=== PATIENT | male | born 1950 | race Caucasian/White ===

== ENCOUNTER 2018-10-22 14:01 | Inpatient (IN) | payer OTHER ==
--- NOTE | 2018-10-22 16:14 | PDOC ---
History of Present Illness - General Chief Complaint: Pain, Acute Stated Complaint: ABD PAIN, VOMITING (PCP SENT) Time Seen by Provider: 10/22/18 16:13 History Source: Patient Exam Limitations: No Limitations - History of Present Illness Initial Comments: Pt is a 67 yo M, with PMH of TIA (remote, no deficits), [place] (2016, with stents), HTN, HLD, hernia (?), and GERD with bleeding duodenal ulcer (treated w antibiotics), who is presenting with complaints of RUQ and epigastric pain x1 month, associated with nausea/vomiting and decreased ability to tolerate PO food intake. Pt is presenting today from his PCP office, as his PCP had concerns of decreased PO intake and possible biliary disease. Pt states the abdominal pain occurs throughout the day, is sharp and is constant. It is exacerbated by food. Pt states he took OTC maalox and 14 days of prilosec, which improved the pain, but then ran out of the medication. Pt admits to alcohol use, including either 6-pack beer or 1 bottle of wine per day. Pt states his BMs have been loose since he has only been able to tolerate apple sauce, water, and pedialyte. He has not been taking any of his medications ( aspirin, statin, metoprolol, lisinopril) x3 weeks due to stomach discomfort and feared interaction of his medications with alcohol. Pt denies any fevers/chills , headache, vision changes, chest pain, palpitations, SOB, urinary symptoms, diarrhea/constipation, or leg swelling. Social: Alcohol use - 1 bottle of wine or 6 pack "tall boys" beer. No cigarette or drug use. Pt denies any recent travel or sick contacts. Surgical: no relevant history Family: father and brother with [place] in 40s. 10/22/18 17:35 10/23/18 10:09 Past History - Travel Traveled outside of the country in the last 30 days: No Close contact w/someone who was outside of country & ill: No - Past Medical History Allergies/Adverse Reactions: Allergies Allergy/AdvReac Type Severity Reaction Status Date / Time No Known Allergies Allergy Verified 10/22/18 14:06 Home Medications: Ambulatory Orders Aspirin 81 mg PO DAILY 10/22/18 Atorvastatin Ca [Lipitor] 40 mg PO HS 10/22/18 Lisinopril [Zestril] 2.5 mg PO DAILY 10/22/18 Metoprolol Succinate 25 mg PO DAILY 10/22/18 Cardiac Disorders: Yes (Cardiac Stent 2016) CVA: Yes (TIA remote, no deficits) COPD: No Diabetes: No GI Disorders: Yes (GERD) HTN: Yes Hypercholesterolemia: Yes - Surgical History Abdominal Surgery: No (hernia repair) Appendectomy: No Cardiac Surgery: Yes (cardiac stents) Cholecystectomy: No GI Surgery: No - Suicide/Smoking/Psychosocial Hx Smoking History: Never smoked Have you smoked in the past 12 months: No Information on smoking cessation initiated: No Hx Alcohol Use: No Drug/Substance Use Hx: No Substance Use Type: None Review of Systems - Review of Systems Able to Perform ROS?: Yes Is the patient limited Persian proficient: No Constitutional: Yes: Loss of Appetite, Weight Stable. No: Chills, Diaphoresis, Fever HEENTM: Yes: Throat Pain (from emesis). No: Recent change in vision, Nose Congestion, Difficulty Swallowing Respiratory: No: Cough, Orthopnea, Shortness of Breath Cardiac (ROS): No: Chest Pain, Edema, Irregular Heart Rate, Lightheadedness, Palpitations, Syncope, Chest Tightness ABD/GI: Yes: Nausea, Poor Appetite, Vomiting, Indigestion, Abdominal cramping. No: Abdominal Distended, Abd. Pain w/ defecation, Blood Streaked Bowels, Constipated, Diarrhea, Poor Fluid Intake, Rectal Bleeding, Tarry Stools : No: Burning, Dysuria, Frequency, Hematuria, Pain, Urgency Musculoskeletal: No: Back Pain, Joint Pain, Muscle Weakness Integumentary: No: Change in Color, Rash Neurological: No: Headache, Seizure, Weakness, Unsteady Gait, Ataxia, Dizziness Psychiatric: No: Sleep Pattern Change, Change in Appetite Endocrine: Yes: Unexplained Weight Loss, Change in Weight Hematologic/Lymphatic: No: Anemia, Blood Clots, Easy Bleeding, Easy Bruising All Other Systems: Reviewed and Negative *Physical Exam - Vital Signs Last Vital Signs Temp Pulse Resp BP Pulse Ox 97.8 F 81 16 144/65 100 10/22/18 14:04 10/22/18 14:04 10/22/18 14:04 10/22/18 14:04 10/22/18 14:04 - Physical Exam General Appearance: Yes: Nourished, Appropriately Dressed, Other (Pt appears chronically ill; telangiectasias on face, mild abdominal distension but thin in face). No: Apparent Distress, Alcohol on Breath, Intoxicated HEENT: positive: EOMI, ABDI, Normal Voice, Pharyngeal Erythema, Hearing Grossly Normal. negative: Normal ENT Inspection, Pharynx Normal, Scleral Icterus (R), Scleral Icterus (L), Muffled/Hoarse voice, Tonsillar Exudate, Tonsillar Erythema , Nasal Congestion, Lesions, Thrush Neck: positive: Trachea midline, Normal Thyroid, Supple. negative: Tender, Rigid, Decreased range of motion, Lymphadenopathy (R), Lymphadenopathy (L) Respiratory/Chest: positive: Lungs Clear, Normal Breath Sounds. negative: Chest Tender, Respiratory Distress, Accessory Muscle Use, Crackles, Wheezing Cardiovascular: positive: Regular Rhythm, Regular Rate, S1, S2. negative: Edema , JVD, Murmur Vascular Pulses: Carotid (R): 4+, Carotid (L): 4+ Gastrointestinal/Abdominal: positive: Normal Bowel Sounds, Tender (RUQ and epigastric tenderness to palpation, no rebound no guarding), Soft, Distended. negative: Flat, Organomegaly, Pulsatile Mass, Guarding, Rebound, Mass Rectal Exam: positive: deferred Lymphatic: negative: Adenopathy, Tenderness Musculoskeletal: positive: Normal Inspection. negative: CVA Tenderness Extremity: positive: Normal Capillary Refill, Normal Inspection, Normal Range of Motion, Pelvis Stable. negative: Tender, Pedal Edema Integumentary: positive: Dry, Warm, Erythema (erythema of face/telangectasia). negative: Normal Color, Jaundice, Clammy, Diaphoresis, Rash Neurologic: positive: banquet server on call II-XII NML intact, Fully Oriented, Alert, Normal Mood/ Affect, Normal Response, Motor Strength 5/5 Moderate Sedation - Procedure Monitoring Vital Signs: Procedure Monitoring Vital Signs Temperature 97.8 F 10/22/18 14:04 Pulse Rate 81 10/22/18 14:04 Respiratory Rate 16 10/22/18 14:04 Blood Pressure 144/65 10/22/18 14:04 O2 Sat by Pulse Oximetry (%) 100 10/22/18 14:04 ED Treatment Course - LABORATORY CBC & Chemistry Diagram: 10/23/18 06:15 10/23/18 06:15 Medical Decision Making - Medical Decision Making Pt was seen at bedside, also will be seen by attending Dr. Soler. Pt presenting with complaints of RUQ and epigastric pain x1 month, associated with nausea/vomiting and decreased ability to tolerate PO food intake. Pt is presenting today from his PCP office, as his PCP had concerns of decreased PO intake and possible biliary disease. Pt states the abdominal pain occurs throughout the day, is sharp and is constant. It is exacerbated by food. Pt states he took OTC maalox and 14 days of prilosec, which improved the pain, but then ran out of the medication. Pt admits to alcohol use, including either 6- pack beer or 1 bottle of wine per day. Pt states his BMs have been loose since he has only been able to tolerate apple sauce, water, and pedialyte. Pt denies any fevers/chills, headache, vision changes, chest pain, palpitations, SOB, urinary symptoms, diarrhea/constipation, or leg swelling. PE showed erythema of face/telangiectasia, erythema of oral pharynx without exudate. Heart and lung sounds with no wheezing. Abdominal tenderness to palpation in epigastric and RUQ, no hepatosplenomegaly noted, no rebound no guarding. No CVA tenderness. Considering gastritis vs peptic/duodenal ulcer vs pancreatitis vs cholecystitis vs alcoholic hepatitis. Limited concern for gastric/duodenal perforation, as abdomen is soft and non-distended, pt afebrile. Ordered work-up including CBC, CMP, type & screen, PT/INR, UA, urine culture, ECG, troponin and abdominal US (aorta,GB,liver). Provided 1 L NS, 20 mg IV pepcid, 30 mg PO maalox, and viscous lidocaine for improvement of pain and likely reflux. Will continue to reassess pt and monitor for symptomatic improvement. 10/22/18 16:14 CBC: appears very hemoconcentrated (h/h elevated) 10/22/18 17:24 Ordered abd/pelvis CT with contrast in addition to US. Pt also admitted to ~30- 40 lb weight loss since May. 10/22/18 18:15 CMP: K 3.3, Cl 92, likely from vomiting. Mg 2.7, lipase 66. AST and ALT WNL. ECG: HR 63, QTc 476, incomplete RBBB. 10/22/18 18:27 Pt was taken to abd/pelvis CT with IV contrast and US. Pt signed out to next resident team. Explained presentation, ED course, any pending results, and needed interventions to resident Dr. Fontaine. 10/23/18 10:15 *DC/Admit/Observation/Transfer Diagnosis at time of Disposition: Gastric outlet obstruction Abdominal pain Qualifiers: Abdominal location: epigastric Qualified Code(s): R10.13 - Epigastric pain - Discharge Dispostion Condition at time of disposition: Stable - Referrals - Patient Instructions - Post Discharge Activity
--- NOTE | 2018-10-22 16:26 | PDOC ---
Attending Attestation - HPI HPI: 10/22/18 17:40 The patient is a 67 year old male with a significant PMH of TIA, [place] in 2016 s/p stent, hernia, GERD, and bleeding duodenal ulcer who presents to the emergency department with a 1 month history of right upper quadrant and epigastric pain. Patient states he has been drinking gatorade, pedialyte, and water for the past month as he is unable to tolerate PO intake. Patient is also complaining of associated nausea and nonbloody, nonbilious vomit. Patient used maalox, which alleviated his symptoms for approximately 2 weeks but is now constant. Patient endorses daily alcohol use 1 month prior to the onset of these symptoms. Patient went to his PCP today, who advised the patient to come to the ED. Patient admits to a 55lbs. weight loss since May. The patient denies chest pain, shortness of breath, headache and dizziness. Denies fever, chills, diarrhea and constipation. Denies dysuria, frequency, urgency and hematuria. Allergies: NKA Past surgical history: stent placed. Social history: No reported alcohol, drug or cigarette use. PCP: Dr. Jones - Physicial Exam PE: 10/22/18 18:12 ADULT PHYSICAL EXAM Constitutional: Awake, alert, oriented. No acute distress. Head: Normocephalic. Atraumatic Eyes: PERRL. EOMI. Conjunctivae are not pale. ENT: Mucous membranes are moist and intact. Posterior pharynx without exudates or erythema. Uvula midline. Neck: Supple. Full ROM. No lymphadenopathy. Cardiovascular: Regular rate. Regular rhythm. S1, S2 regular. Distal pulses are 2+ and symmetric. Pulmonary/Chest: No evidence of respiratory distress. Clear to auscultation bilaterally No wheezing, rales or rhonchi. Abdominal: Soft and non-distended. There is no tenderness. No rebound, guarding or rigidity. No organomegaly. No palpable masses. Good bowel sounds. Back: No CVA tenderness. Musculoskeletal: No edema. No cyanosis. No clubbing. Full range of motion in all extremities. Nocalf tenderness. Radial/pedal pulses are intact and 2+ bilaterally Skin: Skin is warm and dry. No petechiae. No purpura. Neurological: Alert and oriented to person, place, and time. Cranial nerves II -XII are grossly intact. Normal speech. Strength is grossly symmetric. No sensory deficits. Psychiatric: Good eye contact. Normal interaction, affect and behavior. <Rayna Talavera - Last Filed: 10/22/18 18:12> - Resident Resident Name: Santa Stallworth - ED Attending Attestation I have performed the following: I have examined & evaluated the patient, The case was reviewed & discussed with the resident, I agree w/resident's findings & plan, Exceptions are as noted - Medical Decision Making 10/22/18 16:25 I, Dr. Germaine Soler, DO, attest that this document has been prepared under my direction and personally reviewed by me in its entirety. I further attest, that it accurately reflects all work, treatment, procedures and medical decision -making performed by me. 10/22/18 19:21 a/p: 67yo male with upper abd pain -states 40lb wt loss since may -only able to tolerate liquids at this time -no night sweats -pain and vomiting with any solid food and slow progression of food through his gi tract -pain in epigastric and ruq - concern for biliary disease, gastric ulcer, pud, poss gi ca -will send labs, RUQ ultrasound, ct abd/pelvis -will hydrate -will monitor and reassess 10/22/18 20:36 pt with thickening of the pyloris on ct concern for the wt loss, abd pain, inability to tolerate solids will admit for GI eval and pain control -will continue to hydrate 10/22/18 20:[address] Vickey Jones admits to [facility] who admits to [facility] 10/22/18 20:[address] Hurd who reviewed the CT and requests NGT placement and IVF hydration npo status 10/22/18 20:51 case discussed with Luz from [facility] who accepts pt to service <Germaine Soler - Last Filed: 10/22/18 20:51> Heart Score/ECG Review - ECG Intrepretation Comment:: 10/22/18 19:23 sinus ta 63, nl axis, pac, nl interval, incomplete RBBB, no acute st/t wave findings <Germaine Soler - Last Filed: 10/22/18 20:51>
[2018-10-22] MEDS ORDERED: FAMOTIDINE 20 MG/50 ML IVPB 20 MG/50 ML MG IVPB ONE ×2 (16:37→17:25)
[2018-10-22] MEDS ORDERED: SODIUM CHLORIDE 1,000 ML IV STA (16:37)
[2018-10-22] MEDS ORDERED: MAG HYDROX/AL HYDROX/SIMETH 30 ML UNIT-DOSE CUP PO ONE (16:37)
[2018-10-22] MEDS ORDERED: LIDOCAINE VISCOUS 2% ORAL/TOP 20 ML UNIT-DOSE CUP MM ONE (16:38)
[2018-10-22 17:11] LABS: BASO % 0.5 % (0-2.0); EOS % 0.3 % (0-4.5); HEMATOCRIT 57.3 % (35.4-49); HEMOGLOBIN 19.4 GM/dL (11.7-16.9); MCH 28.3 pg (25.7-33.7); MCHC 33.9 g/dl (32.0-35.9); MEAN CELL VOLUME 83.6 fl (80-96); MONO % 8.5 % (3.8-10.2); NEUT % 77.7 % (42.8-82.8); PLATELET COUNT 158 K/MM3 (134-434); RBC 6.85 M/mm3 (4.00-5.60); RDW 15.1 % (11.9-15.9); WHITE BLOOD COUNT 6.9 K/mm3 (4.0-10.0)
[2018-10-22] MEDS ORDERED: MAG HYDROX/AL HYDROX/SIMETH 30 ML UNIT-DOSE CUP ONE (17:25)
[2018-10-22] MEDS ORDERED: LIDOCAINE VISCOUS 2% ORAL/TOP 20 ML UNIT-DOSE CUP ONE (17:25)
[2018-10-22 17:32] LABS: INR 1.11 (0.83-1.09); PROTHROMBIN TIME (PATIENT) 13.1 SEC (9.7-13.0)
[2018-10-22 17:49] LABS: ALBUMIN 3.7 g/dl (3.4-5.0); ALK PHOS 69 U/L (45-117); ANION GAP 11 MMOL/L (8-16); BILIRUBIN,TOTAL 0.6 mg/dL (0.2-1); BLOOD UREA NITROGEN 7 mg/dL (7-18); CALCIUM 9.4 mg/dL (8.5-10.1); CHLORIDE 92 mmol/L (98-107); CO2 34 mmol/L (21-32); CREATININE 0.8 mg/dL (0.55-1.3); GLUCOSE,RANDOM 135 mg/dL (74-106); LIPASE 66 U/L (73-393); MAGNESIUM 2.7 mg/dL (1.8-2.4); POTASSIUM 3.3 mmol/L (3.5-5.1); SGOT/AST 28 U/L (15-37); SGPT/ALT 27 U/L (13-61); SODIUM 137 mmol/L (136-145); TOT PROT 7.4 g/dl (6.4-8.2)
[2018-10-22] MEDS ORDERED: IPRATROPIUM BR 0.02% 0.5 MG/2.5 ML VIAL.NEB. NEB ONE (18:02)
[2018-10-22] MEDS ORDERED: SODIUM CHLORIDE 0.9% 1000 ML INFUS.BAG IV ONE ×2 (18:06→20:44)
[2018-10-22 19:55] LABS: URINE APPEARANCE CLEAR; URINE BILIRUBIN NEGATIVE (<2.0 mg/dL); URINE COLOR STRAW; URINE GLUCOSE (UA) NEGATIVE (NEGATIVE); URINE KETONE 2+ (NEGATIVE); URINE LEUK ESTERASE NEGATIVE (NEGATIVE); URINE NITRITE NEGATIVE (NEGATIVE); URINE PROTEIN 1+ (NEGATIVE); URINE UROBILINOGEN NEGATIVE mg/dL (0.2-1.0)
--- NOTE | 2018-10-22 20:37 | PDOC ---
*Physical Exam - Vital Signs Last Vital Signs Temp Pulse Resp BP Pulse Ox 97.8 F 81 16 144/65 100 10/22/18 14:04 10/22/18 14:04 10/22/18 14:04 10/22/18 14:04 10/22/18 14:04 ED Treatment Course - LABORATORY CBC & Chemistry Diagram: 10/22/18 16:56 10/22/18 16:56 - ADDITIONAL ORDERS Additional order review: Laboratory Results 10/22/18 10/22/18 10/22/18 19:37 16:56 16:56 PT with INR 13.10 H INR 1.11 H Sodium Potassium Chloride Carbon Dioxide Anion Gap BUN Creatinine Creat Clearance w eGFR Random Glucose Calcium Magnesium Total Bilirubin AST ALT Alkaline Phosphatase Troponin I Total Protein Albumin Lipase Urine Color Straw Urine Appearance Clear Urine pH 9.0 H Ur Specific [place] 1.050 H Urine Protein 1+ H Urine Glucose (UA) Negative Urine Ketones 2+ H Urine Blood Negative Urine Nitrite Negative Urine Bilirubin Negative Urine Urobilinogen Negative Ur Leukocyte Esterase Negative Urine WBC (Auto) None Urine RBC (Auto) 1 Blood Type O POSITIVE Antibody Screen Negative 10/22/18 16:56 PT with INR INR Sodium 137 Potassium 3.3 L Chloride 92 L Carbon Dioxide 34 H Anion Gap 11 BUN 7 Creatinine 0.8 Creat Clearance w eGFR > 60 Random Glucose 135 H Calcium 9.4 Magnesium 2.7 H Total Bilirubin 0.6 AST 28 ALT 27 Alkaline Phosphatase 69 Troponin I < 0.02 Total Protein 7.4 Albumin 3.7 Lipase 66 L Urine Color Urine Appearance Urine pH Ur Specific [place] Urine Protein Urine Glucose (UA) Urine Ketones Urine Blood Urine Nitrite Urine Bilirubin Urine Urobilinogen Ur Leukocyte Esterase Urine WBC (Auto) Urine RBC (Auto) Blood Type Antibody Screen 10/22/18 16:56 RBC 6.85 H MCV 83.6 MCHC 33.9 RDW 15.1 MPV 9.0 D Neutrophils % 77.7 D Lymphocytes % 13.0 D Monocytes % 8.5 Eosinophils % 0.3 D Basophils % 0.5 - Medications Given in the ED: ED Medications Discontinued Medications Generic Name Dose Route Start Last Admin Trade Name Freq PRN Reason Stop Dose Admin Al Hydroxide/Mg Hydroxide 30 ml 10/22/18 16:37 10/22/18 17:45 Mylanta Oral Suspension - PO 10/22/18 16:38 30 ml ONCE ONE Administration Famotidine/Sodium Chloride 20 mg in 50 mls @ 100 mls/hr 10/22/18 16:37 17:45 Pepcid 20 Mg Premixed Ivpb - IVPB 10/22/18 17:06 100 mls/hr ONCE ONE Administration Sodium Chloride 1,000 mls @ 1,000 mls/hr 10/22/18 16:37 10/22/18 17:45 Normal Saline - IV 10/22/18 17:36 1,000 mls/hr ASDIR STA Administration Lidocaine HCl 20 ml 10/22/18 16:38 10/22/18 17:46 Xylocaine 2% Viscous Oral - MM 10/22/18 16:39 20 ml ONCE ONE Administration Sodium Chloride 1,000 ml 10/22/18 18:06 10/22/18 19:33 Normal Saline - IV 10/22/18 18:07 1,000 ml ONCE ONE Administration Medical Decision Making - Medical Decision Making Patient was signed out to me from the day team. CT scan showed gastric outlet obstruction. Contacted hospitalist for admission. He needs an NG tube placed for decompression so he can receive an EGD tomorrow. Will make patient NPO in ED and place NG tube. NG tube placed. Patient admitted to hospitalist for gastric outlet obstruction and abdominal pain. *DC/Admit/Observation/Transfer Diagnosis at time of Disposition: Abdominal pain, Gastric outlet obstruction - Discharge Dispostion Decision to Admit order: Yes - Referrals - Patient Instructions - Post Discharge Activity Procedures - Additional Procedures Additional Procedures: gastric tube replacement (NG tube placed for decompression, no complications. )
[2018-10-22] MEDS ORDERED: SODIUM CHLORIDE 1,000 ML IV SCH (20:45)
--- NOTE | 2018-10-22 22:20 | HP ---
CHIEF COMPLAINT: abd pain, vomiting, PCP: HISTORY OF PRESENT ILLNESS: Kirill Carmona is a 67 yo M, with PMH of TIA (remote, no deficits), [place] (2016, with stents), HTN, HLD, hernia (?), and GERD with bleeding duodenal ulcer (treated w antibiotics), presented to ED today from PCP office with complaints of RUQ and epigastric pain x1 month, associated with nausea/vomiting and decreased ability to tolerate PO food intake. pt reports having on/off RUQ abd pain since Thanks, was vomiting little food he ate, pt had no pain, tried to eat something on Becky and started vomiting again. pt reports last drinking wine in Aug, beer last year, pt stopped taking medications several months ago, didn't want them to interact with alcohol. Pt states his BMs have been loose since he has only been able to tolerate apple sauce, water, and pedialyte. Denies sob, chest pain, NG tube inserted, draining dark brown liquid >700cc in container. pt reports 40 lbs weight loss, was 240's in May, today 196. ER course was notable for: (1)CT scan gastric outlet obstruction (2)afebrile (3)dehydration bun Recent Travel:none PAST MEDICAL HISTORY:hx of [place] (stent placed in 2015), GERD PAST SURGICAL HISTORY: Stent placed Social History: Smoking:denies Alcohol:hx of etoh abuse, last drink in Aug Drugs: denies Family History: Allergies No Known Allergies Allergy (Verified 10/22/18 14:06) HOME MEDICATIONS: Home Medications Medication Instructions Recorded Aspirin 81 mg PO DAILY 10/22/18 Atorvastatin Ca [Lipitor] 40 mg PO HS 10/22/18 Lisinopril [Zestril] 2.5 mg PO DAILY 10/22/18 Metoprolol Succinate 25 mg PO DAILY 10/22/18 REVIEW OF SYSTEMS CONSTITUTIONAL: +weight change, unable to tolerate solids Absent: fever, chills, diaphoresis, generalized weakness, malaise, loss of appetite, HEENT: Absent: rhinorrhea, nasal congestion, throat pain, throat swelling, difficulty swallowing, mouth swelling, ear pain, eye pain, visual changes CARDIOVASCULAR: Absent: chest pain, syncope, palpitations, irregular heart rate, lightheadedness , peripheral edema RESPIRATORY: Absent: cough, shortness of breath, dyspnea with exertion, orthopnea, wheezing, stridor, hemoptysis GASTROINTESTINAL: +abd RUQ abd pain, vomiting, Absent:, diarrhea, constipation, melena, hematochezia GENITOURINARY: Absent: dysuria, frequency, urgency, hesitancy, hematuria, flank pain, genital pain MUSCULOSKELETAL: Absent: myalgia, arthralgia, joint swelling, back pain, neck pain SKIN: Absent: rash, itching, pallor HEMATOLOGIC/IMMUNOLOGIC: Absent: easy bleeding, easy bruising, lymphadenopathy, frequent infections ENDOCRINE: Absent: unexplained weight gain, unexplained weight loss, heat intolerance, cold intolerance NEUROLOGIC: Absent: headache, focal weakness or paresthesias, dizziness, unsteady gait, seizure, mental status changes, bladder or bowel incontinence PSYCHIATRIC: Absent: anxiety, depression, suicidal or homicidal ideation, hallucinations. PHYSICAL EXAMINATION Vital Signs - 24 hr 10/22/18 14:04 Temperature 97.8 F Pulse Rate 81 Respiratory 16 Rate Blood Pressure 144/65 O2 Sat by Pulse 100 Oximetry (%) GENERAL: Awake, alert, and fully oriented, in no acute distress. HEAD: Normal with no signs of trauma. EYES: Pupils equal, round and reactive to light, extraocular movements intact, sclera anicteric, conjunctiva clear. No lid lag. EARS, NOSE, THROAT: Ears normal, nares patent, oropharynx clear without exudates. Moist mucous membranes. NECK: Normal range of motion, supple without lymphadenopathy, JVD, or masses. LUNGS: Breath sounds equal, clear to auscultation bilaterally. No wheezes, and no crackles. No accessory muscle use. HEART: Regular rate and rhythm, normal S1 and S2 without murmur, rub or gallop. ABDOMEN: Soft, nontender on palpation, not distended, normoactive bowel sounds, no guarding, no rebound, no masses. No hepatomegaly or splenomegaly. MUSCULOSKELETAL: Normal range of motion at all joints. No bony deformities or tenderness. No CVA tenderness. UPPER EXTREMITIES: 2+ pulses, warm, well-perfused. No cyanosis. No clubbing. No peripheral edema. LOWER EXTREMITIES: 2+ pulses, warm, well-perfused. No calf tenderness. No peripheral edema. NEUROLOGICAL: Cranial nerves II-XII intact. Normal speech. Normal gait. PSYCHIATRIC: Cooperative. Good eye contact. Appropriate mood and affect. SKIN: Warm, dry, normal turgor, no rashes or lesions noted, normal capillary refill. Laboratory Results - last 24 hr 10/22/18 10/22/18 10/22/18 16:56 16:56 16:56 WBC 6.9 RBC 6.85 H Hgb 19.4 H Hct 57.3 H D MCV 83.6 MCH 28.3 MCHC 33.9 RDW 15.1 Plt Count 158 MPV 9.0 D Absolute Neuts (auto) 5.4 Neutrophils % 77.7 D Lymphocytes % 13.0 D Monocytes % 8.5 Eosinophils % 0.3 D Basophils % 0.5 Nucleated RBC % 0 PT with INR INR Sodium 137 Potassium 3.3 L Chloride 92 L Carbon Dioxide 34 H Anion Gap 11 BUN 7 Creatinine 0.8 Creat Clearance w eGFR > 60 Random Glucose 135 H Calcium 9.4 Magnesium 2.7 H Total Bilirubin 0.6 AST 28 ALT 27 Alkaline Phosphatase 69 Troponin I < 0.02 Total Protein 7.4 Albumin 3.7 Lipase 66 L Urine Color Urine Appearance Urine pH Ur Specific [place] Urine Protein Urine Glucose (UA) Urine Ketones Urine Blood Urine Nitrite Urine Bilirubin Urine Urobilinogen Ur Leukocyte Esterase Urine WBC (Auto) Urine RBC (Auto) Blood Type O POSITIVE Antibody Screen Negative 10/22/18 10/22/18 16:56 19:37 WBC RBC Hgb Hct MCV MCH MCHC RDW Plt Count MPV Absolute Neuts (auto) Neutrophils % Lymphocytes % Monocytes % Eosinophils % Basophils % Nucleated RBC % PT with INR 13.10 H INR 1.11 H Sodium Potassium Chloride Carbon Dioxide Anion Gap BUN Creatinine Creat Clearance w eGFR Random Glucose Calcium Magnesium Total Bilirubin AST ALT Alkaline Phosphatase Troponin I Total Protein Albumin Lipase Urine Color Straw Urine Appearance Clear Urine pH 9.0 H Ur Specific [place] 1.050 H Urine Protein 1+ H Urine Glucose (UA) Negative Urine Ketones 2+ H Urine Blood Negative Urine Nitrite Negative Urine Bilirubin Negative Urine Urobilinogen Negative Ur Leukocyte Esterase Negative Urine WBC (Auto) None Urine RBC (Auto) 1 Blood Type Antibody Screen ASSESSMENT/PLAN: Kirill Carmona is a 67 yo M, with PMH of TIA (remote, no deficits), [place] (2016, with stents), HTN, HLD, hernia (?), and GERD with bleeding duodenal ulcer admitted for Admitting Diagnosis Gastric Outlet Obstruction Chronic Problems HTN HLD GERD A/P: #Gastric outlet obstruction -NPO -NG tube to low suction -IVF -IV PPI, pain mgt -GI consult (made aware in ED) -EGD pending for tomorrow -monitor labs #HTN #HLD -po meds on hold -monitor BP -can give IV if BP increases #Hypokalemia-mild -repeat in AM Full Code Dispo: requires inpatient treatment Visit type - Emergency Visit Emergency Visit: Yes Care time: The patient presented to the Emergency Department on the above date and was hospitalized for further evaluation of their emergent condition. - New Patient This patient is new to me today: Yes Date on this admission: 10/22/18 - Critical Care Critical Care patient: No
[2018-10-23] MEDS: SODIUM CHLORIDE 1,000 ML IV SCH ×2 (04:00→10:54)
[2018-10-23 07:14] LABS: BASO % 0.2 % (0-2.0); EOS % 0.4 % (0-4.5); HEMATOCRIT 56.2 % (35.4-49); HEMOGLOBIN 17.4 GM/dL (11.7-16.9); LYMPH % 16.7 % (8-40); MCH 26.8 pg (25.7-33.7); MEAN CELL VOLUME 86.2 fl (80-96); MEAN PLT VOLUME 8.7 fl (7.5-11.1); MONO % 8.1 % (3.8-10.2); NEUT % 74.6 % (42.8-82.8); PLATELET COUNT 117 K/MM3 (134-434); RBC 6.52 M/mm3 (4.00-5.60); RDW 15.1 % (11.9-15.9); WHITE BLOOD COUNT 6.1 K/mm3 (4.0-10.0)
[2018-10-23 07:34] LABS: ALBUMIN 2.9 g/dl (3.4-5.0); ALK PHOS 52 U/L (45-117); ANION GAP 9 MMOL/L (8-16); BILIRUBIN,TOTAL 0.5 mg/dL (0.2-1); BLOOD UREA NITROGEN 8 mg/dL (7-18); CALCIUM 8.1 mg/dL (8.5-10.1); CHLORIDE 100 mmol/L (98-107); CO2 30 mmol/L (21-32); CREATININE 0.6 mg/dL (0.55-1.3); GLUCOSE,RANDOM 83 mg/dL (74-106); MAGNESIUM 2.4 mg/dL (1.8-2.4); POTASSIUM 3.2 mmol/L (3.5-5.1); SGOT/AST 24 U/L (15-37); SGPT/ALT 22 U/L (13-61); SODIUM 139 mmol/L (136-145); TOT PROT 6.2 g/dl (6.4-8.2)
--- NOTE | 2018-10-23 09:19 | CON.GI ---
Consult Consult Specialty:: GI Referred by:: Dr. Bennett Reason for Consultation:: Gastric outlet obstruction - History of Present Illness Chief Complaint: "I have been vomiting" History of Present Illness: 67M admitted for evaluation of persistent vomiting. He states that this started around thanksgiving, becoming progressively worse with more frequent vomiting of the food he had just eaten. He compensated by changing his diet to liquid. He did not seek medical attention until recent. He believes that he has lost 35 pounds over the last year. He does not recall ever having had an upper endoscopy or colonoscopy. CT scan performed in the ER revealed gastric distention with changes consistent with gastric outlet obstruction. There was also a 1.5cm hypodensity in the liver. The radiologist compared this to an upper GI study from 2004 that revealed a pyloric narrowing. Mr. Carmona recalls being treated for h. pylori several years ago and being told of an "ulcer". He stopped ASA and Plavix about a month ago on his own. 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: Yes: TIA Cardio/Vascular: Yes: CAD, [place] Gastrointestinal: Yes: Peptic Ulcer Disease - Past Surgical History Past Surgical History: Yes: Hernia Repair (umbilical hernia repair) - Alcohol/Substance Use Hx Alcohol Use: Yes History of Substance Use: reports: None - Smoking History Smoking history: Never smoked Have you smoked in the past 12 months: No - Social History Usual Living Arrangement: With Spouse ADL: Independent Place of : [facility] History of Recent Travel: No Home Medications - Allergies Allergies/Adverse Reactions: Allergies Allergy/AdvReac Type Severity Reaction Status Date / Time No Known Allergies Allergy Verified 10/22/18 14:06 - Home Medications Home Medications: Ambulatory Orders Aspirin 81 mg PO DAILY 10/22/18 Atorvastatin Ca [Lipitor] 40 mg PO HS 10/22/18 Lisinopril [Zestril] 2.5 mg PO DAILY 10/22/18 Metoprolol Succinate 25 mg PO DAILY 10/22/18 Family Disease History - Family Disease History Family Disease History: Heart Disease: Father (father [place] 40's), Brother ( brother [place] 50's), Other: Mother (: 80's: complication from aneurysm), Daughter (2, healthy) Review of Systems - Review of Systems Constitutional: reports: Unintentional Wgt. Loss. denies: Fever Cardiovascular: denies: Chest Pain Respiratory: denies: SOB Gastrointestinal: reports: Abdominal Pain Physical Exam-GI Vital Signs: Vital Signs Temperature 98.3 F 10/23/18 06:00 Pulse Rate 70 10/23/18 06:00 Respiratory Rate 18 10/23/18 06:00 Blood Pressure 148/78 10/23/18 06:00 O2 Sat by Pulse Oximetry (%) 98 10/23/18 02:05 Constitutional: Yes: Calm Eyes: No: Sclera Icterus Cardiovascular: Yes: Regular Rate and Rhythm Respiratory: Yes: CTA Bilaterally Gastrointestinal Inspection: Yes: Scars (periumbilical scar). 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 A malignant process is not exluded. I explained the above to Mr. Heard. For further evaluation and definitive therapy / diagnosis, I advised transfer to a tertiary care center such as [facility], where more advanced theapeutics such as stenting, EUS and surgical options would be available. I spoke with Dr. Adan Yancey, advanced biliary endoscopist who was amenable to this plan and gave me the [facility] transfer # . He was hesitant to commit to transfer and stated that he would need to discuss things with his . For now: Continue NGT decompression as part of treatment Monitor lytes Added protonix 40mg IVP bolus + protonix drip @ 8mg/hr. Monitor magnesium levels while on drip If he continues to refuse transfer, possible upper endoscopy tomorrow for evaluation Code(s): K31.1 - ADULT HYPERTROPHIC PYLORIC STENOSIS
[2018-10-23] MEDS ORDERED: FAMOTIDINE 20 MG/50 ML IVPB 20 MG/50 ML MG IVPB SCH (10:00)
[2018-10-23] MEDS ORDERED: PANTOPRAZOLE SODIUM 40 MG VIAL IVPUSH SCH (10:00)
[2018-10-23] MEDS ORDERED: PT OWN MED DRAWER 7, Y5N ONE ×2 (10:13→15:47)
[2018-10-23] MEDS ORDERED: PANTOPRAZOLE SODIUM 40 MG VIAL IVPUSH ONE (10:15)
[2018-10-23] MEDS ORDERED: SODIUM CHLORIDE 1,000 ML with POTASSIUM CHLORIDE 20 MEQ IV SCH (12:13)
--- NOTE | 2018-10-23 12:13 | EKG ---
Test Reason : Blood Pressure : / mmHG Vent. Rate : 063 BPM Atrial Rate : 063 BPM P-R Int : 166 ms QRS Dur : 096 ms QT Int : 466 ms P-R-T Axes : 013 020 004 degrees QTc Int : 476 ms SINUS RHYTHM WITH PREMATURE ATRIAL COMPLEXES POSSIBLE LEFT ATRIAL ENLARGEMENT INCOMPLETE RIGHT BUNDLE BRANCH BLOCK BORDERLINE ECG WHEN COMPARED WITH ECG OF 30-NOV-2015 13:29, PREMATURE ATRIAL COMPLEXES ARE NOW PRESENT T WAVE INVERSION NOW EVIDENT IN INFERIOR LEADS QT HAS LENGTHENED Confirmed by AMNA SEXTON MD ([id number]) on 10/23/2018 12:12:57 PM Referred By: Confirmed By:AMNA SEXTON MD
[2018-10-23] MEDS ORDERED: ACETAMINOPHEN 1000 MG/100 ML VIAL (NON FORMULARY) IVPB ONE (12:15)
--- NOTE | 2018-10-23 12:29 | PN ---
Progress Note, Physician Chief Complaint: patient has NG tube on ivf - Current Medication List Current Medications: Active Medications Pantoprazole Sodium 80 mg/ (Sodium Chloride) 100 mls @ 10 mls/hr IVPB Q10H FRANCHESCA Potassium Chloride 20 meq/ (Sodium Chloride) 1,010 mls @ 100 mls/hr IV Q10H FRANCHESCA - Objective Vital Signs: Vital Signs Temperature 98.3 F 10/23/18 06:00 Pulse Rate 70 10/23/18 06:00 Respiratory Rate 18 10/23/18 06:00 Blood Pressure 148/78 10/23/18 06:00 O2 Sat by Pulse Oximetry (%) 98 10/23/18 02:05 Constitutional: Yes: Calm Cardiovascular: Yes: Regular Rate and Rhythm, S1, S2 Respiratory: Yes: CTA Bilaterally Gastrointestinal: Yes: Soft, Distention Edema: No Psychiatric: Yes: Alert, Oriented Labs: CBC, BMP 10/23/18 06:15 10/23/18 06:15 INR, PTT INR 1.11 (0.83-1.09) H 10/22/18 16:56 Problem List - Problems (1) Abdominal pain Assessment/Plan: ng tube gi on board iv ppi patient hesitant to go to [facility] i explained him all the diagnostic study results ct scan and ultrasound tylenol gastric outlet obstruction bc of focal pyloric region narrowing scd for dvt ppx Code(s): R10.9 - UNSPECIFIED ABDOMINAL PAIN (2) Gastric outlet obstruction Assessment/Plan: ng tube ppi ivf with potassium recheck lytes in AM Code(s): K31.1 - ADULT HYPERTROPHIC PYLORIC STENOSIS (3) History of coronary artery disease Assessment/Plan: cardiology to see patient dr thorne holding po meds for now asprin,statin and metoprolol Code(s): Z86.79 - PERSONAL HISTORY OF OTHER DISEASES OF THE CIRCULATORY SYSTEM
[2018-10-23] MEDS ORDERED: SODIUM CHLORIDE 0.9%/KCL 20 MEQ/1,000 ML INFUS.BAG IV SCH (12:30)
--- NOTE | 2018-10-23 15:06 | CON.CARD ---
Consult Consult Specialty:: cardiology Reason for Consultation:: CAD - History of Present Illness History of Present Illness: 67 M with CAD sp MT 2016 sp mid LAD stenting. Stopped medications few months ago , alcohol use. admitted with intractable vomiting and gastric outlet obstruction. There is no chest pain, palpitations, dyspnea orthopnea. 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 Cardio/Vascular: Yes: CAD, [place] Gastrointestinal: Yes: Peptic Ulcer Disease - Past Surgical History Past Surgical History: Yes: Hernia Repair (umbilical hernia repair) - Alcohol/Substance Use Hx Alcohol Use: Yes History of Substance Use: reports: None - Smoking History Smoking history: Never smoked Have you smoked in the past 12 months: No - Social History Usual Living Arrangement: With Spouse ADL: Independent History of Recent Travel: No Home Medications - Allergies Allergies/Adverse Reactions: Allergies Allergy/AdvReac Type Severity Reaction Status Date / Time No Known Allergies Allergy Verified 10/22/18 14:06 - Home Medications Home Medications: Ambulatory Orders Aspirin 81 mg PO DAILY 10/22/18 Atorvastatin Ca [Lipitor] 40 mg PO HS 10/22/18 Lisinopril [Zestril] 2.5 mg PO DAILY 10/22/18 Metoprolol Succinate 25 mg PO DAILY 10/22/18 Family Disease History - Family Disease History Family Disease History: Heart Disease: Father (father [place] 40's), Brother ( brother [place] 50's), Other: Mother (: 80's: complication from aneurysm), Daughter (2, healthy) Review of Systems - Review of Systems Constitutional: reports: No Symptoms Eyes: reports: No Symptoms HENT: reports: No Symptoms Neck: reports: No Symptoms Cardiovascular: denies: Chest Pain, Edema, Palpitations, Shortness of Breath Respiratory: reports: No Symptoms Gastrointestinal: reports: Bloating, Vomiting Genitourinary: reports: No Symptoms Vital Signs: Vital Signs Temperature 98.4 F 10/23/18 14:38 Pulse Rate 57 L 10/23/18 14:38 Respiratory Rate 20 10/23/18 14:38 Blood Pressure 140/81 10/23/18 14:38 O2 Sat by Pulse Oximetry (%) 98 10/23/18 02:05 Constitutional: Yes: Well Nourished, No Distress, Calm Eyes: Yes: Conjunctiva Clear, EOM Intact HENT: Yes: Atraumatic, Normocephalic Neck: Yes: Supple, Trachea Midline Respiratory: Yes: Regular, CTA Bilaterally Gastrointestinal: Yes: Normal Bowel Sounds JVD: No Carotid Bruit: No PMI: Non-Displaced Heart Sounds: Yes: S1, S2 Murmur: No: Systolic Murmur, Diastolic Murmur Edema: No - Other Data Labs, Other Data: CBC, BMP 10/23/18 06:15 10/23/18 06:15 INR, PTT INR 1.11 (0.83-1.09) H 10/22/18 16:56 Troponin, BNP 10/22/18 16:56 Troponin I < 0.02 Troponin, BNP 10/22/18 16:56 Troponin I < 0.02 NSR incomplete RBBB Problem List - Problems (1) Gastric outlet obstruction Code(s): K31.1 - ADULT HYPERTROPHIC PYLORIC STENOSIS Assessment/Plan History of MT and PCI to the mid LAD. Now gastric outlet obstruction. No ischemic symptoms or changes of ischemia on ECG. Off anti-ischemic medications in the acute setting. Resume statin and beta jasen once able to tolerate PO. Desision to resume ASA pending ultimate disease process and risk of bleeding. BP controlled.
[2018-10-23] MEDS: PANTOPRAZOLE SODIUM 80 MG in SODIUM CHLORIDE 100 ML IVPB SCH ×2 (16:47→20:21)
[2018-10-24] MEDS: PANTOPRAZOLE SODIUM 80 MG in SODIUM CHLORIDE 100 ML IVPB SCH (05:35)
[2018-10-24 07:19] LABS: HEMATOCRIT 57.8 % (35.4-49); HEMOGLOBIN 18.2 GM/dL (11.7-16.9); MCH 26.9 pg (25.7-33.7); MCHC 31.5 g/dl (32.0-35.9); MEAN CELL VOLUME 85.6 fl (80-96); MEAN PLT VOLUME 8.4 fl (7.5-11.1); PLATELET COUNT 120 K/MM3 (134-434); RBC 6.75 M/mm3 (4.00-5.60); RDW 15.3 % (11.9-15.9); WHITE BLOOD COUNT 7.2 K/mm3 (4.0-10.0)
[2018-10-24 07:51] LABS: BLOOD UREA NITROGEN 9 mg/dL (7-18); CHLORIDE 104 mmol/L (98-107); CREATININE 0.7 mg/dL (0.55-1.3); GLUCOSE,RANDOM 63 mg/dL (74-106); POTASSIUM 3.7 mmol/L (3.5-5.1); SODIUM 139 mmol/L (136-145)
[2018-10-24 07:52] LABS: ALBUMIN 3.2 g/dl (3.4-5.0); ALK PHOS 60 U/L (45-117); ANION GAP 13 MMOL/L (8-16); BILIRUBIN,TOTAL 0.6 mg/dL (0.2-1); CALCIUM 8.7 mg/dL (8.5-10.1); CO2 23 mmol/L (21-32); MAGNESIUM 2.1 mg/dL (1.8-2.4); SGOT/AST 21 U/L (15-37); SGPT/ALT 22 U/L (13-61); TOT PROT 6.8 g/dl (6.4-8.2)
--- NOTE | 2018-10-24 09:34 | PN ---
Progress Note (short form) - Note Progress Note: Spoke with nurse this morning. Mr. Carmona now amenable to transfer. Transfer to [facility] to be arranged Problem List - Problems (1) Gastric outlet obstruction Code(s): K31.1 - ADULT HYPERTROPHIC PYLORIC STENOSIS
--- NOTE | 2018-10-24 10:54 | DS ---
Physical Examination Vital Signs: Vital Signs Temperature 98.4 F 10/24/18 05:57 Pulse Rate 67 10/24/18 05:57 Respiratory Rate 18 10/24/18 05:57 Blood Pressure 153/82 10/24/18 05:57 O2 Sat by Pulse Oximetry (%) 98 10/23/18 21:00 Constitutional: Yes: Calm HENT: Yes: Other (ng tube to suction) Cardiovascular: Yes: Regular Rate and Rhythm, S1, S2 Respiratory: Yes: CTA Bilaterally Gastrointestinal: Yes: Normal Bowel Sounds, Soft Edema: No Neurological: Yes: Alert, Oriented Labs: CBC, BMP 10/24/18 06:15 10/24/18 06:15 Discharge Summary Reason For Visit: PYLORIC OBSTRUCTION ABDOMINAL PAIN Current Active Problems Abdominal pain (Acute) Gastric outlet obstruction (Acute) History of coronary artery disease (Acute) Hospital Course: HIEF COMPLAINT: abd pain, vomiting, PCP: HISTORY OF PRESENT ILLNESS: Kirill Carmona is a 67 yo M, with PMH of TIA (remote, no deficits), MD (2016, with stents), HTN, HLD, hernia (?), and GERD with bleeding duodenal ulcer (treated w antibiotics), presented to ED today from PCP office with complaints of RUQ and epigastric pain x1 month, associated with nausea/vomiting and decreased ability to tolerate PO food intake. pt reports having on/off RUQ abd pain since Thanksgi, was vomiting little food he ate, pt had no pain, tried to eat something on [place] and started vomiting again. pt reports last drinking wine in Aug, beer last year, pt stopped taking medications several months ago, didn't want them to interact with alcohol. Pt states his BMs have been loose since he has only been able to tolerate apple sauce, water, and pedialyte. Denies sob, chest pain, NG tube inserted, draining dark brown liquid >700cc in container. pt reports 40 lbs weight loss, was 240's in May, today 196. ER course was notable for: (1)CT scan gastric outlet obstruction (2)afebrile (3)dehydration bun Recent Travel:none PAST MEDICAL HISTORY:hx of MD (stent placed in 2015), GERD ct scan show focal pyloric region narrowing seen by GI - ng tube placed to be trasnfer to [facility] cardiology- cad s/p stent anti ischemic medications on hold for now including aspirin Condition: Stable - Instructions Referrals: Jan Jones MD, MD [Primary Care Provider] - Mike Hurd MD [Staff Physician] - Disposition: TRANSFER ACUTE CARE/OTHER HOSP - Home Medications Comprehensive Discharge Medication List: Ambulatory Orders Aspirin 81 mg PO DAILY 10/22/18 Atorvastatin Ca [Lipitor] 40 mg PO HS 10/22/18 Lisinopril [Zestril] 2.5 mg PO DAILY 10/22/18 Metoprolol Succinate 25 mg PO DAILY 10/22/18
--- NOTE | 2018-10-24 11:24 | PN ---
Progress Note (short form) - Note Progress Note: spoke to [facility] [place] the surgical team accepted the patient to surgical floor ramya donahue accepted the patient floor to floor transfer ct scan disc will be sent to the patient Problem List - Problems (1) Abdominal pain Code(s): R10.9 - UNSPECIFIED ABDOMINAL PAIN (2) Gastric outlet obstruction Code(s): K31.1 - ADULT HYPERTROPHIC PYLORIC STENOSIS (3) History of coronary artery disease Code(s): Z86.79 - PERSONAL HISTORY OF OTHER DISEASES OF THE CIRCULATORY SYSTEM
[2018-10-24 11:39] LABS: PLATELET ESTIMATE ADEQUATE
[2018-10-24 14:13] VITALS: BP 157/85; PULSE 63; TEMP 98
[2018-10-24 14:27] VITALS: BMI 27.6
== END 2018-10-24 13:30 | disposition short-term general hospital (02) | DRG 381 ==
LOC: JER 14:01 → JERBED 20:42 → J7W 10-23 02:58
PROVIDERS: ADMIT Internal Medicine; ATTEND Family Medicine
PROC: 0D9670Z Drainage of Stomach with Drainage Device, Via Natural or Artificial Opening (ICD-10-PCS; principal; 2018-10-22)
DX: K31.1 Adult hypertrophic pyloric stenosis (principal); K25.3 Acute gastric ulcer without hemorrhage or perforation; I10 Essential (primary) hypertension; E78.5 Hyperlipidemia, unspecified; R63.4 Abnormal weight loss; Z68.27 Body mass index [BMI] 27.0-27.9, adult; K21.9 Gastro-esophageal reflux disease without esophagitis; I45.10 Unspecified right bundle-branch block; I25.2 Old myocardial infarction; I25.10 Atherosclerotic heart disease of native coronary artery without angina pectoris; K42.9 Umbilical hernia without obstruction or gangrene; Z86.73 Personal history of transient ischemic attack (TIA), and cerebral infarction without residual deficits; Z87.11 Personal history of peptic ulcer disease; Z95.5 Presence of coronary angioplasty implant and graft; Z86.79 Personal history of other diseases of the circulatory system
CPT/HCPCS: 36415; 71045-TC-FY; 74177-TC; 76705-TC; 80053; 81003; 81015; 83690; 83735; 84484; 85025; 85610; 86850; 86900; 86901; 87086; 93005; 93010; 99285-25; J0131; J7030

== ENCOUNTER 2022-03-30 17:25 | Inpatient (IN) | payer OTHER ==
[2022-03-30] MEDS ORDERED: ONDANSETRON 4 MG/2 ML VIAL IVPUSH ONE ×2 (18:03→21:50)
[2022-03-30] MEDS ORDERED: SODIUM CHLORIDE 0.9% 500 ML INFUS.BAG IV ONE (18:04)
[2022-03-30] MEDS ORDERED: ONDANSETRON 4 MG/2 ML VIAL ONE ×2 (18:18→21:59)
[2022-03-30 19:07] LABS: BASO % 0.9 % (0-2.0); EOS % 0.3 % (0-4.5); HEMATOCRIT 39.3 % (35.4-49); HEMOGLOBIN 12.1 GM/dL (11.7-16.9); MCH 24.5 pg (25.7-33.7); MCHC 30.9 g/dl (32.0-35.9); MEAN CELL VOLUME 79.3 fl (80-96); MEAN PLT VOLUME 8.4 fl (7.5-11.1); MONO % 3.8 % (3.8-10.2); PLATELET COUNT 194 10^3/uL (134-434); RBC 4.95 M/mm3 (4.00-5.60); RDW 22.4 % (11.9-15.9); WHITE BLOOD COUNT 13.8 K/mm3 (4.0-10.0)
[2022-03-30 19:25] LABS: CALCIUM 9.4 mg/dL (8.5-10.1)
[2022-03-30 19:26] LABS: ALBUMIN 3.2 g/dl (3.4-5.0); BLOOD UREA NITROGEN 60.4 mg/dL (7-18); MAGNESIUM 2.1 mg/dL (1.8-2.4)
[2022-03-30 19:30] LABS: PHOSPHOROUS 2.9 mg/dL (2.5-4.9)
[2022-03-30 19:31] LABS: BILIRUBIN,TOTAL 0.2 mg/dL (0.2-1); TOT PROT 6.3 g/dl (6.4-8.2)
[2022-03-30 20:07] LABS: ANISOCYTOSIS 2+; MACROCYTOSIS 1+
[2022-03-30 23:38] LABS: BASO % 0.3 % (0-2.0); EOS % 0.6 % (0-4.5); HEMATOCRIT 38.6 % (35.4-49); HEMOGLOBIN 12.4 GM/dL (11.7-16.9); MCH 24.8 pg (25.7-33.7); MCHC 32.1 g/dl (32.0-35.9); MEAN CELL VOLUME 77.2 fl (80-96); MEAN PLT VOLUME 8.4 fl (7.5-11.1); MONO % 6.1 % (3.8-10.2); PLATELET COUNT 177 10^3/uL (134-434); RDW 22.2 % (11.9-15.9); WHITE BLOOD COUNT 11.9 K/mm3 (4.0-10.0)
[2022-03-30] MEDS ORDERED: PANTOPRAZOLE SODIUM 40 MG VIAL IVPUSH ONE (23:59)
[2022-03-31] MEDS ORDERED: PANTOPRAZOLE SODIUM 40 MG VIAL IVPUSH ONE
[2022-03-31] MEDS ORDERED: PANTOPRAZOLE SODIUM 40 MG VIAL ONE (00:05)
[2022-03-31] MEDS ORDERED: ONDANSETRON 4 MG/2 ML VIAL IVPUSH PRN (01:12)
[2022-03-31] MEDS ORDERED: SODIUM CHLORIDE 1,000 ML IV SCH (01:15)
[2022-03-31 04:09] VITALS: BMI 29.0
[2022-03-31 08:05] LABS: BASO % 0.4 % (0-2.0); EOS % 0.4 % (0-4.5); HEMATOCRIT 38.2 % (35.4-49); HEMOGLOBIN 11.8 GM/dL (11.7-16.9); LYMPH % 5.4 % (8-40); MCH 24.4 pg (25.7-33.7); MCHC 30.9 g/dl (32.0-35.9); MEAN CELL VOLUME 78.7 fl (80-96); MEAN PLT VOLUME 8.7 fl (7.5-11.1); MONO % 6.2 % (3.8-10.2); NEUT % 87.6 % (42.8-82.8); PLATELET COUNT 184 10^3/uL (134-434); RBC 4.85 M/mm3 (4.00-5.60); RDW 23.1 % (11.9-15.9); WHITE BLOOD COUNT 8.4 K/mm3 (4.0-10.0)
[2022-03-31 08:25] LABS: CALCIUM 8.4 mg/dL (8.5-10.1)
[2022-03-31 08:26] LABS: ALBUMIN 3.1 g/dl (3.4-5.0)
[2022-03-31 08:28] LABS: CREATININE 0.9 mg/dL (0.55-1.3)
[2022-03-31 08:29] LABS: BILIRUBIN,TOTAL 0.2 mg/dL (0.2-1)
[2022-03-31 08:38] LABS: BLOOD UREA NITROGEN 55.7 mg/dL (7-18)
[2022-03-31] MEDS ORDERED: PANTOPRAZOLE SODIUM 40 MG VIAL IVPUSH SCH (10:30)
[2022-03-31] MEDS: SODIUM CHLORIDE 1,000 ML IV SCH (10:52)
[2022-03-31] MEDS ORDERED: PANTOPRAZOLE SODIUM 80 MG in SODIUM CHLORIDE 100 ML IVPB SCH (11:45)
[2022-03-31] MEDS: PANTOPRAZOLE SODIUM 160 MG in SODIUM CHLORIDE 290 ML IVPB SCH (13:12)
[2022-03-31 14:44] LABS: BASO % 0.2 % (0-2.0); EOS % 1.2 % (0-4.5); HEMATOCRIT 34.5 % (35.4-49); HEMOGLOBIN 10.9 GM/dL (11.7-16.9); LYMPH % 11.1 % (8-40); MCH 24.8 pg (25.7-33.7); MCHC 31.5 g/dl (32.0-35.9); MEAN CELL VOLUME 78.8 fl (80-96); MEAN PLT VOLUME 8.7 fl (7.5-11.1); MONO % 7.7 % (3.8-10.2); NEUT % 79.8 % (42.8-82.8); PLATELET COUNT 178 10^3/uL (134-434); RBC 4.38 M/mm3 (4.00-5.60); RDW 22.5 % (11.9-15.9); WHITE BLOOD COUNT 6.4 K/mm3 (4.0-10.0)
[2022-03-31 15:09] LABS: BLOOD UREA NITROGEN 40.8 mg/dL (7-18)
[2022-03-31 15:13] LABS: CREATININE 0.8 mg/dL (0.55-1.3)
[2022-03-31] MEDS: ATORVASTATIN CA 40 MG TABLET (FP) PO SCH (21:18)
[2022-04-01] MEDS: SODIUM CHLORIDE 1,000 ML IV SCH ×2 (01:59→21:39)
[2022-04-01 07:01] LABS: BASO % 0.4 % (0-2.0); EOS % 1.3 % (0-4.5); HEMOGLOBIN 9.8 GM/dL (11.7-16.9); LYMPH % 13.4 % (8-40); MCH 25.1 pg (25.7-33.7); MCHC 31.5 g/dl (32.0-35.9); MEAN CELL VOLUME 79.8 fl (80-96); MEAN PLT VOLUME 8.5 fl (7.5-11.1); MONO % 9.1 % (3.8-10.2); NEUT % 75.8 % (42.8-82.8); PLATELET COUNT 165 10^3/uL (134-434); RBC 3.89 M/mm3 (4.00-5.60); RDW 21.9 % (11.9-15.9); WHITE BLOOD COUNT 5.8 K/mm3 (4.0-10.0)
[2022-04-01 07:34] LABS: ALBUMIN 2.6 g/dl (3.4-5.0); BLOOD UREA NITROGEN 20.9 mg/dL (7-18); CALCIUM 7.5 mg/dL (8.5-10.1)
[2022-04-01 07:36] LABS: CREATININE 0.7 mg/dL (0.55-1.3)
[2022-04-01 07:37] LABS: BILIRUBIN,TOTAL 0.3 mg/dL (0.2-1); TOT PROT 5.5 g/dl (6.4-8.2)
[2022-04-01] MEDS: PANTOPRAZOLE SODIUM 160 MG in SODIUM CHLORIDE 290 ML IVPB SCH (08:21)
[2022-04-01] MEDS: metoPROLOL SUCCINATE 25 MG TAB.SR.24H (FP) PO SCH (09:54)
[2022-04-01 19:12] LABS: HEMATOCRIT 30.5 % (35.4-49); HEMOGLOBIN 9.8 GM/dL (11.7-16.9); MCH 25.6 pg (25.7-33.7); MCHC 32.2 g/dl (32.0-35.9); MEAN CELL VOLUME 79.6 fl (80-96); MEAN PLT VOLUME 8.3 fl (7.5-11.1); PLATELET COUNT 158 10^3/uL (134-434); RBC 3.83 M/mm3 (4.00-5.60); RDW 21.5 % (11.9-15.9); WHITE BLOOD COUNT 7.2 K/mm3 (4.0-10.0)
[2022-04-01] MEDS ORDERED: ACETAMINOPHEN 1000 MG/100 ML BAG IVPB ONE (20:34)
[2022-04-01] MEDS: ATORVASTATIN CA 40 MG TABLET (FP) PO SCH ×2 (21:40→21:45)
[2022-04-02] MEDS: PANTOPRAZOLE SODIUM 160 MG in SODIUM CHLORIDE 290 ML IVPB SCH (05:55)
[2022-04-02 07:00] LABS: BASO % 0.2 % (0-2.0); HEMATOCRIT 30.3 % (35.4-49); HEMOGLOBIN 9.7 GM/dL (11.7-16.9); LYMPH % 11.4 % (8-40); MCH 25.7 pg (25.7-33.7); MCHC 31.8 g/dl (32.0-35.9); MEAN CELL VOLUME 80.7 fl (80-96); MEAN PLT VOLUME 7.6 fl (7.5-11.1); MONO % 9.1 % (3.8-10.2); NEUT % 78.3 % (42.8-82.8); PLATELET COUNT 161 10^3/uL (134-434); RBC 3.76 M/mm3 (4.00-5.60); RDW 22.1 % (11.9-15.9); WHITE BLOOD COUNT 7.4 K/mm3 (4.0-10.0)
[2022-04-02 07:22] LABS: BLOOD UREA NITROGEN 14.8 mg/dL (7-18)
[2022-04-02 07:24] LABS: ALBUMIN 2.9 g/dl (3.4-5.0)
[2022-04-02 07:25] LABS: CREATININE 0.6 mg/dL (0.55-1.3)
[2022-04-02 07:27] LABS: BILIRUBIN,TOTAL 0.2 mg/dL (0.2-1); TOT PROT 6.1 g/dl (6.4-8.2)
[2022-04-02] MEDS: SODIUM CHLORIDE 1,000 ML IV SCH (10:38)
[2022-04-02] MEDS: metoPROLOL SUCCINATE 25 MG TAB.SR.24H (FP) PO SCH (10:38)
[2022-04-02] MEDS: ATORVASTATIN CA 40 MG TABLET (FP) PO SCH (21:39)
[2022-04-02] MEDS: PANTOPRAZOLE 40 MG TABLET PO SCH (21:39)
[2022-04-03] MEDS: metoPROLOL SUCCINATE 25 MG TAB.SR.24H (FP) PO SCH ×2 (10:13→10:20)
[2022-04-03] MEDS: PANTOPRAZOLE 40 MG TABLET PO SCH ×2 (10:13→21:37)
[2022-04-03] MEDS: SODIUM CHLORIDE 1,000 ML IV SCH (10:13)
[2022-04-03 13:01] LABS: BASO % 0.4 % (0-2.0); EOS % 1.3 % (0-4.5); HEMATOCRIT 28.8 % (35.4-49); HEMOGLOBIN 8.9 GM/dL (11.7-16.9); LYMPH % 14.1 % (8-40); MCH 24.5 pg (25.7-33.7); MEAN CELL VOLUME 79.1 fl (80-96); MEAN PLT VOLUME 8.6 fl (7.5-11.1); MONO % 10.5 % (3.8-10.2); NEUT % 73.7 % (42.8-82.8); PLATELET COUNT 171 10^3/uL (134-434); RBC 3.64 M/mm3 (4.00-5.60); WHITE BLOOD COUNT 6.7 K/mm3 (4.0-10.0)
[2022-04-03 13:17] LABS: CALCIUM 8.2 mg/dL (8.5-10.1)
[2022-04-03 13:18] LABS: ALBUMIN 2.7 g/dl (3.4-5.0); BLOOD UREA NITROGEN 7.5 mg/dL (7-18)
[2022-04-03 13:21] LABS: CREATININE 0.5 mg/dL (0.55-1.3)
[2022-04-03 13:22] LABS: BILIRUBIN,TOTAL 0.2 mg/dL (0.2-1)
[2022-04-03 13:23] LABS: TOT PROT 5.6 g/dl (6.4-8.2)
[2022-04-03] MEDS ORDERED: IRON SUCROSE INJECTION 200 MG in SODIUM CHLORIDE 90 ML IVPB ONE (13:30)
[2022-04-03 14:21] LABS: ANISOCYTOSIS 2+; MACROCYTOSIS 2+
[2022-04-03] MEDS: ATORVASTATIN CA 40 MG TABLET (FP) PO SCH (21:37)
[2022-04-04 07:05] LABS: BASO % 0.3 % (0-2.0); HEMATOCRIT 29.9 % (35.4-49); HEMOGLOBIN 9.2 GM/dL (11.7-16.9); LYMPH % 18.8 % (8-40); MCH 24.4 pg (25.7-33.7); MEAN CELL VOLUME 78.8 fl (80-96); MEAN PLT VOLUME 7.5 fl (7.5-11.1); MONO % 12.6 % (3.8-10.2); NEUT % 65.3 % (42.8-82.8); PLATELET COUNT 201 10^3/uL (134-434); RBC 3.79 M/mm3 (4.00-5.60); RDW 21.6 % (11.9-15.9); RETICULOCYTES 2.34 % (0.5-1.5); WHITE BLOOD COUNT 5.4 K/mm3 (4.0-10.0)
[2022-04-04 07:29] LABS: CALCIUM 8.4 mg/dL (8.5-10.1)
[2022-04-04 07:30] LABS: BLOOD UREA NITROGEN 8.8 mg/dL (7-18)
[2022-04-04 07:33] LABS: CREATININE 0.5 mg/dL (0.55-1.3)
[2022-04-04] MEDS: PANTOPRAZOLE 40 MG TABLET PO SCH ×2 (10:02→21:16)
[2022-04-04] MEDS: metoPROLOL SUCCINATE 25 MG TAB.SR.24H (FP) PO SCH (10:02)
[2022-04-04 14:19] LABS: ARTERIAL BLD GAS O2 SATURATION 98.8 % (95-98); ARTERIAL BLOOD GAS BASE EXCESS 11.5 mmol/L (-2-2); ARTERIAL BLOOD GAS PO2 141.1 mmHg (80-100); ARTERIAL BLOOD GAS pH 7.428 (7.350-7.450)
[2022-04-04 14:26] LABS: ALLENS TEST POSITIVE
[2022-04-04] MEDS ORDERED: AZITHROMYCIN IVPB 500 MG in DEXTROSE 5%-WATER - 250 ML IVPB ONE (20:05)
[2022-04-04] MEDS ORDERED: AZITHROMYCIN IVPB 500 MG/250 ML BAG IVPB ONE (20:53)
[2022-04-04] MEDS ORDERED: DEXTROSE 5%-WATER - 50 ML IVPB ONE (21:10)
[2022-04-04] MEDS ORDERED: cefTRIAXone SODIUM 1 GM VIAL ONE (21:10)
[2022-04-04] MEDS: CEFTRIAXONE 1 GM in DEXTROSE 5%-WATER - 50 ML IVPB SCH (21:16)
[2022-04-05 06:52] LABS: BASO % 0.6 % (0-2.0); EOS % 3.9 % (0-4.5); HEMATOCRIT 27.9 % (35.4-49); HEMOGLOBIN 8.8 GM/dL (11.7-16.9); LYMPH % 18.7 % (8-40); MCHC 31.7 g/dl (32.0-35.9); MEAN CELL VOLUME 78.8 fl (80-96); MEAN PLT VOLUME 7.5 fl (7.5-11.1); MONO % 11.5 % (3.8-10.2); NEUT % 65.3 % (42.8-82.8); PLATELET COUNT 228 10^3/uL (134-434); RBC 3.54 M/mm3 (4.00-5.60); RDW 20.7 % (11.9-15.9); WHITE BLOOD COUNT 5.6 K/mm3 (4.0-10.0)
[2022-04-05 07:18] LABS: CALCIUM 8.1 mg/dL (8.5-10.1)
[2022-04-05 07:19] LABS: ALBUMIN 2.8 g/dl (3.4-5.0); BLOOD UREA NITROGEN 10.4 mg/dL (7-18)
[2022-04-05 07:22] LABS: CREATININE 0.6 mg/dL (0.55-1.3)
[2022-04-05 07:24] LABS: BILIRUBIN,TOTAL 0.1 mg/dL (0.2-1)
[2022-04-05] MEDS ORDERED: cefTRIAXone SODIUM 1 GM VIAL ONE (09:28)
[2022-04-05] MEDS ORDERED: DEXTROSE 5%-WATER - 50 ML IVPB ONE (09:29)
[2022-04-05] MEDS: PANTOPRAZOLE 40 MG TABLET PO SCH ×2 (09:56→21:10)
[2022-04-05] MEDS: AZITHROMYCIN IVPB 250 MG in DEXTROSE 5%-WATER - 250 ML IVPB SCH (09:57)
[2022-04-05] MEDS: metoPROLOL SUCCINATE 25 MG TAB.SR.24H (FP) PO SCH (10:00)
[2022-04-05] MEDS: CEFTRIAXONE 1 GM in DEXTROSE 5%-WATER - 50 ML IVPB SCH (12:11)
[2022-04-05] MEDS: POLYETHYLENE GLYCOL (HEALTHYLAX) 3350 17 GM PACKET PO SCH (13:22)
[2022-04-06 08:36] LABS: ALBUMIN 2.8 g/dl (3.4-5.0); CALCIUM 8.2 mg/dL (8.5-10.1)
[2022-04-06 08:37] LABS: BLOOD UREA NITROGEN 10.8 mg/dL (7-18)
[2022-04-06 08:39] LABS: CREATININE 0.6 mg/dL (0.55-1.3)
[2022-04-06 08:41] LABS: BILIRUBIN,TOTAL 0.2 mg/dL (0.2-1); TOT PROT 5.9 g/dl (6.4-8.2)
[2022-04-06 09:13] LABS: BASO % 0.7 % (0-2.0); EOS % 4.8 % (0-4.5); HEMATOCRIT 28.7 % (35.4-49); LYMPH % 23.3 % (8-40); MCH 24.5 pg (25.7-33.7); MCHC 31.2 g/dl (32.0-35.9); MEAN CELL VOLUME 78.5 fl (80-96); MEAN PLT VOLUME 7.2 fl (7.5-11.1); MONO % 10.1 % (3.8-10.2); NEUT % 61.1 % (42.8-82.8); PLATELET COUNT 264 10^3/uL (134-434); RBC 3.65 M/mm3 (4.00-5.60); RDW 20.5 % (11.9-15.9); WHITE BLOOD COUNT 5.9 K/mm3 (4.0-10.0)
[2022-04-06] MEDS ORDERED: cefTRIAXone SODIUM 1 GM VIAL ONE (09:44)
[2022-04-06] MEDS ORDERED: DEXTROSE 5%-WATER - 50 ML IVPB ONE (09:45)
[2022-04-06] MEDS: POLYETHYLENE GLYCOL (HEALTHYLAX) 3350 17 GM PACKET PO SCH (09:48)
[2022-04-06] MEDS: metoPROLOL SUCCINATE 25 MG TAB.SR.24H (FP) PO SCH (09:48)
[2022-04-06] MEDS: AZITHROMYCIN IVPB 250 MG in DEXTROSE 5%-WATER - 250 ML IVPB SCH (09:48)
[2022-04-06] MEDS: PANTOPRAZOLE 40 MG TABLET PO SCH (09:48)
[2022-04-06] MEDS: CEFTRIAXONE 1 GM in DEXTROSE 5%-WATER - 50 ML IVPB SCH (11:16)
[2022-04-06 15:34] VITALS: BP 114/66; PULSE 74; TEMP 99.5
== END 2022-04-06 18:39 | disposition home or self-care (01) | DRG 377 ==
LOC: JER 17:25 → JERBED 19:43 → J4W 03-31 03:26
PROVIDERS: ADMIT Internal Medicine; ATTEND Family Medicine
PROC: 0DB68ZX Excision of Stomach, Via Natural or Artificial Opening Endoscopic, Diagnostic (ICD-10-PCS; principal; 2022-04-02 12:45)
DX: K28.0 Acute gastrojejunal ulcer with hemorrhage (principal); J96.01 Acute respiratory failure with hypoxia; J96.02 Acute respiratory failure with hypercapnia; J69.0 Pneumonitis due to inhalation of food and vomit; K31.1 Adult hypertrophic pyloric stenosis; J98.11 Atelectasis; N17.9 Acute kidney failure, unspecified; E87.2 Acidosis; D64.9 Anemia, unspecified; E78.5 Hyperlipidemia, unspecified; I10 Essential (primary) hypertension; K21.9 Gastro-esophageal reflux disease without esophagitis; I25.10 Atherosclerotic heart disease of native coronary artery without angina pectoris; E87.5 Hyperkalemia; R11.2 Nausea with vomiting, unspecified; J98.6 Disorders of diaphragm; K20.80 Other esophagitis without bleeding; E66.9 Obesity, unspecified; Z68.29 Body mass index [BMI] 29.0-29.9, adult; Z86.73 Personal history of transient ischemic attack (TIA), and cerebral infarction without residual deficits; Z87.11 Personal history of peptic ulcer disease; Z79.82 Long term (current) use of aspirin
CPT/HCPCS: 0241U-QW; 36415; 36600; 70450-TC; 71045-TC-FY; 71275-TC; 72125-TC; 74018-TC-FY; 74176-TC; 80048; 80053; 82272; 82728; 82803; 82962; 83540; 83550; 83605; 83735; 84100; 84484; 85025; 85027; 85045; 85379; 86140; 86922; 88305-TC; 93005; 93010; 94010; 94761; 99285-25; J1756; Q9967